=== PATIENT | male | born 1985 | race Caucasian/White ===

== ENCOUNTER 2018-06-07 15:24 | Emergency (ER) | payer OTHER ==
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
[2018-06-07 16:41] VITALS: BP 147/88
== END 2018-06-07 16:44 | disposition home or self-care (01) ==
DX: S06.0X0A Concussion without loss of consciousness, initial encounter (principal); V49.49XA Driver injured in collision with other motor vehicles in traffic accident, initial encounter; Y92.410 Unspecified street and highway as the place of occurrence of the external cause